=== PATIENT | male | born 1955 | race Two or more races ===

== ENCOUNTER 2024-06-03 10:24 | Emergency (ER) | payer OTHER, SELFPAY ==
--- NOTE | 2024-06-03 10:28 | EKG_ITS ---
[facility] Test Date: 2024-06-03 Pat Name: ELIZABET ROSS Department: Room: - Gender: Male Ob/Gyn Doctor: : 1955 Requested By: ED Temporary Provider Order Number: [id number] Reading MD: ED Temporary Provider Measurements Intervals Pray Rate: 70 P: 27 AK: 163 QRS: -3 QRSD: 99 T: 32 QT: 384 QTc: 416 Interpretive Statements SINUS RHYTHM Compared to ECG 04/25/2021 15:27:37 No significant changes /store/S0/[id number]/ecg/[id number].pdf
[2024-06-03 10:35] VITALS: BP 136/86; PULSE 70; RESP 18; TEMP 36.6; O2SAT 98; BMI 34.1
--- NOTE | 2024-06-03 10:35 | XR_ITS ---
Examination: CT brain head without contrast. 2-D sagittal coronal reconstructions Date and time of exam:June 03, 2024 1041 hours INDICATIONS: Onset headaches dizziness today CTDI: vol (mGy):58.4 DLP: (mGycm):1118 Technique: Multiple CT axial sections of the brain have been obtained, 5 mm slice thickness. Contrast has not been administered. 2-D sagittal, coronal reconstructions have been obtained Low dose protocols were performed. One or more of the following dose reduction techniques were used; automated exposure control, adjustment of the mA and/or KV according to patient size, use of iterative reconstruction technique. Findings: No significant ventricular enlargement. Intra-axial or extra-axial hemorrhage density is not seen. No mass effect or midline shift Basal cisterns are not remarkable. Fourth ventricle is midline. Cranial vault intact. Significant left maxillary antral sinusitis Advise clinical correlation and follow-up accordingly Impression: Negative for acute hemorrhage, mass effect or midline shift
--- NOTE | 2024-06-03 10:35 | XR_ITS ---
Examination: PA lateral chest 2 views TECHNIQUE: Upright PA lateral chest 2 views Exam date and time: June 03, 2024 1044 hours Comparison April 25, 2021 INDICATIONS: Chest pain today. FINDINGS: Normal heart size No lobar pneumonia or pulmonary edema The osseous structures are intact IMPRESSION: No lobar pneumonia or pulmonary edema
--- NOTE | 2024-06-03 10:36 | PD.EDRME ---
Rapid Medical Screening Exam RME Arrival date/time: 06/03/24 10:24 68-year-old male presents to the emergency department complains of dizziness and chest pressure Chief Complaint: Dizziness Vital signs: Vital Signs Temperature 97.8 F 06/03/24 10:35 Pulse Rate 70 06/03/24 10:35 Respiratory Rate 18 06/03/24 10:35 Blood Pressure 136/86 H 06/03/24 10:35 Pulse Oximetry (%) 98 06/03/24 10:35 Oxygen Delivery Method Room Air 06/03/24 10:35
[2024-06-03] MEDS: MECLIZINE HCL 25 MG TABLET 50 MG PO (10:43)
[2024-06-03] MEDS: ONDANSETRON ODT 4 MG TABRAP PO (10:43)
[2024-06-03 11:15] LABS: Basophils % (Auto) 1 % (0-2.5); Eosinophils # (Auto) 0.2 Thou/mm3 (0.0-0.5); Eosinophils % (Auto) 2 % (0-10); Hematocrit 46.5 % (41.0-53.0); Hemoglobin 15.9 g/dL (13.5-16.0); Immature Granulocytes % (Auto) 1 % (0-0); Immature Granulocytes Auto 0.07 Thou/mm3 (0.00-0.00); Lymphocytes # (Auto) 2.2 Thou/mm3 (1.0-4.8); Lymphocytes % (Auto) 26 % (10-50); Mean Corpuscular HGB Conc 34.2 g/dl (31.0-37.0); Mean Corpuscular Hemoglobin 28.6 pg (25.0-35.0); Mean Corpuscular Volume 84 fL (80-100); Monocytes # (Auto) 0.7 Thou/mm3 (0.0-0.8); Monocytes % (Auto) 8 % (0-12); Neutrophils # (Auto) 5.2 Thou/mm3 (1.8-7.7); Neutrophils % (Auto) 62 % (37-80); Nucleated Red Blood Cell % 0 /100 WBC (0); Platelet Count 241 Thou/mm3 (140-440); RDW Standard Deviation 41.8 fL (35.1-43.9); Red Blood Count 5.55 Miln/mm3 (4.50-5.90); White Blood Count 8.4 Thou/mm3 (3.8-10.6)
[2024-06-03 11:30] LABS: B-Type Natriuretic Peptide < 20 pg/mL (0-100)
[2024-06-03 11:32] LABS: Alanine Aminotransferase 20 U/L (10-49); Albumin, Serum 4.5 gm/dL (3.4-4.8); Albumin/Globulin Ratio 1.5 (1.2-2.2); Alkaline Phosphatase 79 U/L (46-116); Anion Gap 5 (7-16); Aspartate Amino Transferase 21 U/L (0-34); BUN/Creatinine Ratio 15 Ratio (12-20); Bilirubin,Total 0.5 mg/dL (0.3-1.2); Blood Urea Nitrogen 23 mg/dL (9-23); Carbon Dioxide 26.6 mMol/L (20.0-31.0); Chloride 106 mMol/L (98-107); Creatinine (Component) 1.5 mg/dL (0.6-1.3); Estimated Creatinine Clearance 54.3 mL/min (>60); Glucose 237 mg/dL (74-106); Magnesium 2.3 mg/dL (1.6-2.6); Osmolality,Calculated 287 (275-295); Partial Thromboplastin Time 26.8 Seconds (22.0-36.0); Prothrombin Time 10.8 Seconds (9.0-12.2); Sodium 138 mMol/L (136-145); Total Protein 7.5 gm/dL (5.7-8.2); Troponin I < 0.002 ng/mL (0.0-0.045); eGFR 51 See Note
[2024-06-03 11:48] LABS: Collection Type, Urine Clean Catch
[2024-06-03 12:02] LABS: Bilirubin,Urine Negative (Negative); Blood,Urine Negative (Negative); Clarity,Urine Clear (Clear/Hazy); Color,Urine Yellow (Lt Yel-Yel); Glucose, Urine Trace (Negative); Ketones,Urine Negative (Negative); Leukocyte Esterase,Urine Negative (Negative); Nitrite,Urine Negative (Negative); PH,Urine 5.5 (5.0-7.0); Protein,Urine Trace (Neg - Trace); RBC,Urine < 1 /hpf (0-3); Specific Gravity,Urine 1.024 (1.001-1.035); Squamous Epithelial Cell,Urine < 1 /hpf (0-5); Urobilinogen,Urine Negative mg/dL (0.0-1.0); WBC,Urine < 1 /hpf (0-5)
[2024-06-03 12:07] LABS: Amphetamine/Methamp Scrn,U Negative (Negative); Barbiturate Screen,Urine Negative (Negative); Benzodiazepines Screen,Urine Negative (Negative); Benzoylecgonine Screen, Ur Negative (Negative); Fentanyl Screen,Urine Negative (Negative); Opiate Screen,Urine Negative (Negative); THC Screen,Urine Negative (Negative)
[2024-06-03 14:20] VITALS: BP 130/79; PULSE 60; RESP 18; TEMP 36.6; O2SAT 97
--- NOTE | 2024-06-03 14:34 | EDNOTE_ITS ---
<Statement entered by Riya Mace MD - 06/04/24 11:54> As co-signing physician, I was present and available for consult prn. I concur with the plan and care as documented by the midlevel provider. ED Dizzyness RME/HPI General Chief Complaint: Dizziness Stated Complaint: DIZZINESS WITH CHEST /HEAD PRESSURE; PCP SENT ECG Time Seen by Provider: 06/03/24 14:28 Arrival date/time: 06/03/24 10:24 68 year old male with past medical history of HTN, DM , present to emergency room with c/o of intermittent dizziness for months. pt report chest and head pressure, sent in by PCP for evaluation. LOCATION: chest SEVERITY: Symptoms are described as being severe with limitations on activities of daily living CONTEXT: The patient is unable to identify any inciting events. DURATION/TIMING: The symptoms started approximately intermittent for months ago and have been constant since and have been progressive getting worse. ASSOCIATED SYMPTOMS: The patient is unable to identify any other associated symptoms. MODIFYING FACTORS: The patient is unable to identify any alleviating or agg ravating symptoms. PERTINENT ROS: no fevers, no cough, no pleuritic pain, no ripping or tearing sensations, denies any lower extremity edema and no unilateral swelling, no nausea,vomiting, diarrhea, no headache no rash no loc/syncope episode no abd/back pain no dsyuria,urgency,frequency REVIEW OF SYSTEMS: See History of Present Illness - with the exception of those mentioned in the history of present illness, all other systems reviewed and reported as negative GENERAL: In general the patient is awake, interactive, in an emergency department gurney. HEAD/EYES/EARS/NOSE/THROAT: normo-cephalic, atraumatic, mucus membranes are moist, anicteric, palpebral conjunctiva is pink, trachea is midline. CARDIOVASCULAR: regular rate and regular rhythm, no murmurs, heart sounds are not distant, strong pulses in all four extremities that are equal and symmetric bilateral upper and lower extremities, normal capillary refill. CHEST/PULMONARY: normal chest rise and fall, good air movement, clear to a uscultation bilaterally, normal inspiratory to expiratory ratios without evidence of respiratory distress. NECK: No midline/Paraspinal tenderness, no step off ROM/Strenght intact No Kernig and bruzinski sign. No trauma ABDOMEN: soft, not tender, no masses appreciated BACK: normal range of motion without pain. NEUROLOGICAL: cranio-facial features are symmetric, moves all four extremities equally without obvious limitations or weakness. EXTREMITY: no tenderness to palpation over the long bones or large joints of the bilateral upper and lower extremities, no joint swelling, no joint erythema, no signs of trauma, no unilateral leg swelling and no peripheral edema. SKIN: warm, dry, well-perfused, no jaundice, no rash, no telangiectasias or petechia. PSYCH: calm, cooperative, no evidence of psychosis or agitation RME / HPI RME / HPI Narrative: 06/03/24 10:24 68-year-old male presents to the emergency department complains of dizziness and chest pressure Related Data Home Medications ?Medication ?Instructions ?Recorded ?Confirmed glimepiride 4 mg tablet (Amaryl) 4 mg PO QDAY #0 tabs 10/29/15 06/03/24 glucosamine sulfate 500 mg tablet 1,500 mg PO QDAY 05/24/22 (Glucosamine) lisinopril 20 mg tablet 20 mg PO QDAY 12/17/1906/03 metformin 1,000 mg tablet 1,000 mg PO BID 05/23/2203/17 pioglitazone 30 mg tablet 30 mg PO QDAY 05/23/2206/03 Previous Rx's ?Medication ?Instructions ?Recorded meclizine 25 mg tablet 25 mg PO BID PRN dizziness # 30 tabs 06/03/24 Allergies Allergy/AdvReac Type Severity Reaction Status Date / Time No Known Allergies Allergy Verified 06/03/24 10:26 Course Course Course Narrative: Based on History, Exam, and Findings, presentation not consistent with syncope, seizure, stroke, meningitis, symptomatic anemia (gastrointestinal bleed), Increased ICP (cerebral tumor/mass), ICH. Additionally, I have a low suspicion for AOM, labyrinthitis, or other infectious process. heart score: < 3 ekg, trop negative? Reassessment: Prior to discharge symptoms controlled, patient well appearing. Disposition:? Discharge. Strict return precautions discussed w/ full understanding. Advise follow up with primary care provider within 24-48 hours.? Quality Measures none Orders Category Date Time Status EKG (ED ONLY) *Do not use* NOW Care 06/03/24 10:[address] head/brain wo con Stat Exams 06/03/24 10:35 Completed EKG (ED Only) Stat Exams 06/03/24 10:28 Draft XR chest 2V Stat Exams 06/03/24 10:35 Completed B-Type Natriuretic Peptide Stat Lab 06/03/24 11:03 Completed CBC Stat Lab 06/03/24 11:03 Completed Comprehensive Metabolic Panel Stat Lab 06/03/24 11:03 Completed Drug Screen,Urine Stat Lab 06/03/24 11:44 Completed Magnesium Stat Lab 06/03/24 11:03 Completed Partial Thromboplastin Time Stat Lab 06/03/24 11:03 Completed Prothrombin Time with INR Stat Lab 06/03/24 11:03 Completed Troponin I Stat Lab 06/03/24 11:03 Completed Urinalysis Stat Lab 06/03/24 11:44 Completed Meclizine HCl [Antivert] Med 06/03/24 10:35 Discontinued 50 mg PO X1 ONE Ondansetron Odt [Zofran Odt] Med 06/03/24 10:35 Discontinued 4 mg PO X1 ONE Sodium Chloride 0.9% 1000 ml [Ns] 1,000 ml Med 06/03/24 14:28 Discontinued IV 999 mls/hr Vital Signs Vital signs: Vital Signs Temperature 97.8 F 06/03/24 10:35 Pulse Rate 70 06/03/24 10:35 Respiratory Rate 18 06/03/24 10:35 Blood Pressure 136/86 H 06/03/24 10:35 Pulse Oximetry (%) 98 06/03/24 10:35 Oxygen Delivery Method Room Air 06/03/24 10:35 Dizziness Patient data External records reviewed:: [facility] previous records Clinical information provided by:: patient and spouse Social determinants that could affect healthcare access:: none Patient has the following chronic illnesses:: HTN, DM How is presenting disease/condition affected by chronic disease/condition?: uneffected by Evaluation data The following diagnostics were reviewed and interpreted by me:: lab results, radiology exam(s) and EKG tracing(s) Lab and/or radiology exams considered but not ordered:: n/a Interpretation Summary: cbc/bnp/trop wnl , Creat 1.5 possible dehydration given 1 bolus of IV fluids, pt is ambulatory without complications cxr: nad ct: wnl Medications / Prescriptions Medications or Prescriptions considered but not ordered:: n/a Medication administrations:: Medication Administration History Discontinued Medications Sodium Chloride (Ns) 1,000 mls @ 999 mls/hr IV .Q1H1M ONE Stop: 06/03/24 15:28 Last Admin: 06/03/24 14:57 Dose: 999 mls/hr Documented By: Meclizine HCl (Meclizine Hcl 25 Mg Tablet) 50 mg PO X1 ONE Stop: 06/03/24 10:36 Last Admin: 06/03/24 10:43 Dose: 50 mg Documented By: LORI Ondansetron HCl (Ondansetron Odt 4 Mg Tabrap) 4 mg PO X1 ONE; Protocol Stop: 06/03/24 10:36 Last Admin: 06/03/24 10:43 Dose: 4 mg Documented By: LORI as state above Consultations Consultation(s) initiated? (list below): No Diagnosis Dizziness Differential Diagnosis: benign paroxysmal positional vertigo, cerebrovascular accident and other (dehydration, kidney injury, anemia, mi/nstemi, vertigo ) Most likely diagnosis given after review of the tests above:: dehydration Admission Indicated Admission indicated?: not indicated Admission Request Was there a request for admission?: No Disposition Plan Disposition Plan: Discharge Discharge Attestation Discharge Attestation: The patient and all family members were given an opportunity to ask questions and understood the discharge instructions. Discharge instructions specifically effects, indications for sooner follow up or return to the emergency department, and the expected course of current diagnosis. Patient condition: Stable Discharge Plan Plan Patient Disposition: HOME (Self Care) Health Concerns: Follow with PMD as directed Return to ED if sx worsen Prescriptions/Referrals Prescriptions/Med Rec: New meclizine 25 mg tablet 25 mg PO BID PRN (Reason: dizziness) Qty: 30 0RF No Action glimepiride [Amaryl] 4 MG tablet 4 mg PO QDAY Qty: 0 lisinopril 20 mg Tablet 20 mg PO QDAY glucosamine sulfate [Glucosamine] 500 mg Tablet 1,500 mg PO QDAY pioglitazone 30 mg Tablet 30 mg PO QDAY metformin 1,000 mg tablet 1,000 mg PO BID Referrals: Donell Collins MD [Primary Care Provider] - In 1 week Problem List Clinical Impression: Acute dehydration, Dizziness Patient/Caregiver Discharge Instructions Education Materials: ED Dehydration (Adult), ED Dizziness, Uncertain Cause Print Language: Palestinian Stand Alone Forms: Catherine Award Info., Patient Portal Info Letter
[2024-06-03] MEDS: SODIUM CHLORIDE 0.9% 1000 ML 1,000 ML 999 ML IV (14:57)
== END 2024-06-03 16:01 | disposition home or self-care (01) ==
PROVIDERS: Nurse Practitioner Primary Care; Emergency Provider Emergency Medicine; PCP Family Medicine
DX: E86.0 Dehydration (principal); R07.89 Other chest pain; R51.9 Headache, unspecified; R42 Dizziness and giddiness; I10 Essential (primary) hypertension
CPT/HCPCS: 36415; 70450; 71046; 80053; 80307; 81001; 83735; 83880; 84484; 85025; 85610; 85730; 93005; 99284; J7030; Q0162; A9270

== ENCOUNTER → 2025-04-09 | Outpatient (CLI) | payer OTHER, SELFPAY ==
--- NOTE | 2025-04-09 09:07 | XR_ITS ---
Examination: Ribs, right, with PA chest, 4 views Technique: Chest PA, RIBS AP, RPO, LPO, 4 views Exam date and time: April 09, 2025, 0921 hours INDICATIONS: Patient felt a pop in the right ribs last week followed by pain Findings: Normal heart size No pneumothorax Moderate osteopenia Minor scarring in both upper lung zones No acute rib fractures IMPRESSION: No pneumothorax pulmonary contusion or hemothorax No acute rib fractures
== END | disposition home or self-care (01) ==
PROVIDERS: PCP Family Medicine; Referring Provider Family Medicine; Visit Provider Family Medicine
DX: S29.9XXA Unspecified injury of thorax, initial encounter (principal); W19.XXXA Unspecified fall, initial encounter
CPT/HCPCS: 71101